=== PATIENT | female | born 1980 | race Caucasian/White ===

== ENCOUNTER 2019-07-23 21:33 | Emergency (ER) | payer OTHER ==
[~2019-07-23] VITALS: Ht 167.6 cm; Wt 77.1 kg
[2019-07-23 21:56] LABS: HEMATOCRIT 35.2 % (37.0-47.0); HEMOGLOBIN 12.2 gm/dL (12.0-15.0); MCH 32.6 pg (26.0-34.0); MCHC 34.8 g/dL (28.0-37.0); MCV 93.9 fL (80.0-100.0); MPV 8.9 fl. (7.2-11.1); NUCLEATED RBCS 0 /100WBC; PLATELET COUNT* 247 thou/uL (150-400); RBC 3.74 mil/uL (4.20-5.00); RDW-CV 14.1 % (10.5-14.5); WBC 18.9 thou/uL (4.0-11.0)
[2019-07-23 22:08] LABS: CALCIUM 8.1 mg/dL (8.5-10.1); CREATININE 0.5 mg/dL (0.6-1.3); POTASSIUM 3.8 mmol/L (3.5-5.1)
[2019-07-23 22:12] LABS: ALBUMIN 2.8 g/dL (3.4-5.0); TOTAL BILIRUBIN 0.2 mg/dL (<0.1-1.0); TOTAL PROTEIN 6.8 g/dL (6.4-8.2)
[2019-07-23 22:14] LABS: URINE BILIRUBIN NEGATIVE (Negative); URINE BLOOD NEGATIVE (Negative); URINE CLARITY SL CLOUDY; URINE COLOR YELLOW; URINE GLUCOSE-RANDOM NEGATIVE (Negative); URINE KETONES NEGATIVE (Negative); URINE LEUKOCYTES-REFLEX 1+ (Negative); URINE NITRITE-REFLEX NEGATIVE (Negative); URINE PROTEIN TRACE (Negative)
[2019-07-23 22:17] LABS: ABSOLUTE EOSINOPHILS 0.4 thou/uL (0.0-0.7); ABSOLUTE LYMPHOCYTES 4.3 thou/uL (0.8-5.3); ABSOLUTE MONOCYTES 1.5 thou/uL (0.0-1.2); ABSOLUTE NEUTROPHILS 12.7 thou/uL (1.6-8.1); PLATELET ESTIMATE ADEQUATE
[2019-07-23 22:18] VITALS: BP 113/61
[2019-07-23 22:19] LABS: BACTERIA-REFLEX >30 Many /HPF (None Seen); MUCUS >6 Heavy strn/LPF (None Seen); SQUAMOUS >10 Many /LPF (0-3); URINE RBC 0-2 Rare /HPF (0-2); URINE WBC-REFLEX 0-5 Rare /HPF (0-5)
[2019-07-23 22:20] LABS: CASTS None Seen /LPF (None Seen); CRYSTALS None Seen /LPF (None Seen)
[2019-07-23 22:22] LABS: AMP/METHAMP Negative (Negative); BARBITURATES Negative (Negative); BENZODIAZEPINES Negative (Negative); COCAINE Negative (Negative); METHADONE Negative (Negative); OPIATES Negative (Negative); PCP Negative (Negative); THC POSITIVE (Negative)
== END 2019-07-23 22:19 | disposition short-term general hospital (02) ==
LOC: M.ERS 21:33
PROVIDERS: Emergency Medicine
DX: O42.913 Preterm premature rupture of membranes, unspecified as to length of time between rupture and onset of labor, third trimester (principal); Z3A.35 35 weeks gestation of pregnancy